=== PATIENT | male | born 1990 | race Asian ===

== ENCOUNTER 2017-05-03 22:57 | Emergency (ER) | payer BC ==
[~2017-05-03] VITALS: Ht 175.3 cm; Wt 82.6 kg
[2017-05-03 22:57] VITALS: BP_SYST 148
[2017-05-03 23:53] VITALS: BP_SYST 148
== END 2017-05-03 23:53 | disposition home or self-care (01) ==
LOC: SED 22:57
DX: S01.112A Laceration without foreign body of left eyelid and periocular area, initial encounter (principal); W18.09XA Striking against other object with subsequent fall, initial encounter; Y93.89 Activity, other specified; Y92.89 Other specified places as the place of occurrence of the external cause; Y99.8 Other external cause status
CPT/HCPCS: 99283